=== PATIENT | female | born 1980 | race Two or more races ===

== ENCOUNTER 2019-10-01 06:14 | Day surgery (SDC) | payer MEDICAID ==
[~2019-10-01] VITALS: Ht 157.5 cm; Wt 93.4 kg
[~2019-10-01 06:14] MED LIST: NEXIUM40 MG
[2019-10-01 06:42] LABS: HEMATOCRIT 40.8 % (36.0-48.0); HEMOGLOBIN 13.9 g/dL (12-16); MCH 30.5 pg (26.0-34.0); MCHC 34.1 g/dL (31.0-37.0); MCV 89.5 fL (80.0-100.0); MEAN PLATELET VOLUME 9.5 fL (7.4-10.4); RBC 4.56 10x6/uL (4.00-5.40); RDW 12.7 % (11.5-14.5)
[2019-10-01 08:18] VITALS: BP 124/84; Ht 157.5 cm; Wt 93.4 kg
--- NOTE | 2019-10-03 11:59 | HP ---
PATIENT: PETRA REGALADO MEDICAL RECORD: [id number] ACCOUNT: [id number] LOCATION:[facility] : 81 ADMISSION DATE: 10/01/19 PCP: HERI REZA MD HISTORY AND PHYSICAL EXAMINATION HISTORY OF PRESENT ILLNESS: Petra is 39 years old. She has been having significant problems with nasal obstruction refractory to medical management as well as chronic tonsillitis, foreign body sensation in her throat and recurrent uvula edema. She is being admitted for tonsillectomy, adenoidectomy, septoplasty, turbinate reduction. PAST MEDICAL HISTORY: Includes reflux. CURRENT MEDICATIONS: Nexium. ALLERGIES: No known drug allergies. PHYSICAL EXAMINATION: GENERAL: She is healthy-appearing, developmentally normal. FACE: Normal, symmetric, no lesions. EYES: Sclerae and conjunctivae are normal. EARS: Canals and TMs are normal. NOSE: Severe right septal deviation, large inferior turbinates. ORAL CAVITY AND OROPHARYNX: Large tonsils with crypts and tonsilliths bilaterally. 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 NECK: No masses, no adenopathy. CHEST: Clear. CARDIOVASCULAR: Regular rate and rhythm, no murmur. EXTREMITIES: Normal. IMPRESSION: Nasal obstruction, septal deviation, turbinate hypertrophy, uvular lesion, chronic caseous tonsillitis. PLAN: Septoplasty, bilateral inferior turbinate reduction, tonsillectomy, uvulectomy. TRANSINT:[id number] Voice Confirmation ID: [id number] DOCUMENT ID: [id number] KAMALJIT NEWTON MD at 1159 CC: [id number] DICTATION DATE: 09/28/19 1442 PAYROLL AUDITOR: 09/28/19 1541 [facility] 10/01/19 [facility] [address] [id number]
--- NOTE | 2019-10-03 11:59 | OP ---
PATIENT NAME: PETRA REGALADO MEDICAL RECORD: [id number] :82 [facility] ADMISS[facility] DATE: SURGEON: KAMALJIT MATHEW MD DATE OF OPERATION: 10/01/2019 PREOPERATIVE DIAGNOSES: Chronic tonsillitis, uvular lesion, nasal obstruction, septal deviation, and turbinate hypertrophy. POSTOPERATIVE DIAGNOSES: Chronic tonsillitis, uvular lesion, nasal obstruction, septal deviation, and turbinate hypertrophy. PROCEDURES: Septoplasty, tonsillectomy, uvulectomy, and bilateral inferior turbinate reduction. SURGEON: Kamaljit Mathew MD ANESTHESIA: General orotracheal. BLOOD LOSS: Less than 10 cc. SPECIMENS: Right and left tonsil and uvula with lesion. PACKING: Shearer splints bilaterally. COMPLICATIONS: None. DISPOSITION: Recovery stable. 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 PROCEDURE NOTE: She was brought to the operating room and placed in supine position, sedated and intubated by anesthesia. The table was turned 90 degrees. Head drape was applied. The nose examined using a headlight nasal speculum. The nasal septum, floor of the nose, inferior turbinates were injected with a total of less than 2 cc of 1% lidocaine with 1:100,000 epinephrine and 3 Afrin pledgets were placed in each side of the nose. Tay-Cosmo mouth gag was carefully inserted and elevated on a towel on her chest. The palate was examined and palpated. It was normal. A red rubber catheter was placed to the right side of the nose, passed the pledgets and retracted with tonsil clamp. A mirror was used to examine the nasopharynx. Choanae, eustachian tube orifices, nasopharynx all look normal. A red rubber catheter was let down and removed. The right tonsil was grasped at the superior pole with a straight Allis clamp. Spatula tip cautery on a setting of 9 was used to dissect out the tonsil along its capsule, preserving the anterior and posterior tonsillar pillar. The left tonsil was removed in the same fashion. At the superior pole of the left tonsil, almost a lipomatous mass and much of the upper third of that tonsil was completely excised. Then, the uvula, there was a lesion attached of motion of the right side of the uvula, appeared to be a papilloma. A spatula tip cautery on a setting of 9 was used to dissect out about half the uvula and a little bit more on the right side to get the entire mucosa around that lesion excised, that was taken off and then bleeding was controlled with cautery. The pharynx was irrigated. Tonsillar fossae were agitated. Once the field was clean and dry, the uvula defect and superior tonsils were closed with interrupted 3-0 Vicryl. OPERATIVE REPORT [id number] PETRA REGALADO The Tay-Cosmo mouth gag was let down and removed and all Afrin pledgets were removed. Right-sided John Paul incision was made. Ipsilateral mucoperichondrial flap was elevated and excess cartilage rolled out into the floor of the nose, was removed with a caudal and a chisel. The bony cartilaginous junction was disarticulated. A posterior contralateral mucoperichondrial flap was elevated around a bony spur, cut was made with scissors above and below that bony spur and that was removed. This allowed the septum to fall to the midline. Then, both inferior turbinates were medialized with a freer. A Gruenwald was used to take down the inferior redundant portion. Suction cautery was used to stop any bleeding and both outfractured with a Ballwin elevator. Then the G. L. Garcia incision was closed with interrupted 4-0 chromic. Shearer splints were placed bilaterally, some mupirocin ointment and sutured to the anterior membranous septum with a 2-0 Prolene on a Carson needle. She was awakened, extubated, and transported to recovery in good condition. No complications. TRANSINT:[id number] Voice Confirmation ID: [id number] DOCUMENT ID: [id number] KAMALJIT MATHEW MD at 1159 CC: [id number] DICTATION DATE: 10/01/19 1154 PAYROLL PROCESSOR: 10/01/19 1513 [facility] 10/01/19 [id number] [place] [address]
== END 2019-10-01 13:25 | disposition home or self-care (01) ==
LOC: D.OPS 06:14 → D.PAN 08:30 → D.OPS 08:45
PROVIDERS: Anesthesiology; ATTEND Otolaryngology
DX: J35.01 Chronic tonsillitis (principal); J34.89 Other specified disorders of nose and nasal sinuses; J34.3 Hypertrophy of nasal turbinates; K21.9 Gastro-esophageal reflux disease without esophagitis; J34.2 Deviated nasal septum